=== PATIENT | female | born 1965 | race Caucasian/White ===

== ENCOUNTER 2017-11-02 13:52 | Inpatient (IN) | payer MEDICAID ==
[2017-11-02] MEDS ORDERED: Sodium Chloride 0.9% 1,000 ML IV ONE (14:48)
--- NOTE | 2017-11-02 15:05 | ED Physician Chart ---
ED Chief Complaint/HPI - Patient Information Date Seen:: 11/02/17 Time Seen:: 14:00 Chief Complaint:: ALOC History of Present Illness:: onset x 3 hours of ALOC, AMS, and decreased activity; Hx of ETOH abuse; no report of trauma, H/As, S/T, neck pain, cough, C/P, SOB, Abd. Pain, A/N/V/D/C, fever, chills, or urinary s/s; pt's last tetanus shot: > 5 years Allergies:: Allergies Allergy/AdvReac Type Severity Reaction Status Date / Time No Known Allergies Allergy Verified 11/02/17 14:04 Vitals:: Vital Signs - 8 hr 11/02/17 14:05 Temp 98.3 F HR 89 RR 21 BP 97/45 O2 Sat % 94 Historian:: Patient, EMS Review:: Nurse's Note Reviewed, Old Chart Reviewed, EMS run form Reviewed <Juan Antonio Xavier - Last Filed: 11/02/17 19:10> - Patient Information Allergies:: Allergies Allergy/AdvReac Type Severity Reaction Status Date / Time No Known Allergies Allergy Verified 11/02/17 14:04 Vitals:: Vital Signs - 8 hr 11/02/17 11/02/17 11/02/17 14:00 14:05 16:30 Temp 97 F 98.3 F 97.2 F HR 85 89 91 RR 12 21 14 BP 97/45 97/45 103/59 O2 Sat % 96 94 96 11/02/17 11/02/17 18:00 19:55 Temp 97.9 F 98.6 F HR 98 102 RR 14 18 BP 104/53 104/53 O2 Sat % 94 93 <Ashwini Bolanos - Last Filed: 11/02/17 21:03> ED Review of Systems - Review of Systems General/Constitutional: No fever, No chills, No weight loss, No weakness, No diaphoresis, No edema, No loss of appetite Skin: No skin lesions, No rash, No bruising Head: No headache, No light-headedness Eyes: No loss of vision, No pain, No diplopia ENT: No earache, No nasal drainage, No sore throat, No tinnitus Neck: No neck pain, No swelling, No thyromegaly, No stiffness, No mass noted Cardio Vascular: No chest pain, No palpitations, No PND, No orthopnea, No edema Pulmonary: No SOB, No cough, No sputum, No wheezing GI: No nausea, No vomiting, No diarrhea, No pain, No melena, No hematochezia, No constipation, No hematemesis G/U: No dysuria, No frequency, No hematuria, No nacturia Sample Grinder: No vaginal discharge, No abnormal vaginal bleed, No contraction Musculoskeletal: No bone or joint pain, No back pain, No muscle pain Endocrine: No polyuria, No polydipsia Psychiatric: No prior psych history, No depression, No anxiety, No suicidal ideation, No homicidal ideation, No auditory hallucination, No visual hallucination Hematopoietic: No bruising, No lymphadenopathy Allergic/Immuno: No urticaria, No angioedema Neurological: No syncope, No focal symptoms, No weakness, No paresthesia, No headache, No seizure, No dizziness, No confusion, No vertigo <SmitaclaresaraJuan Antonio - Last Filed: 11/02/17 19:10> ED Past Medical History - Past Medical History Obtainable: Yes Past Medical History: HTN, Dyslipidemia, Seizures, Other (Cirrhosis) Family History: HTN Social History: Smoker, Alcohol, No Drug Use, Single Surgical History: None Psychiatricy History: None Medication: Reviewed <SmitarasheedaJuan Antonio Last Filed: 11/02/17 19:10> Family Medical History - Family Member Mother History Unknown: Yes <DucJuan Antonio Last Filed: 11/02/17 19:10> ED Physical Exam - Physical Examination General/Constitutional: Awake, Well-developed, well-nourished, Alert, No distress, GCS 15, Non-toxic appearing, Ambulatory Head: Atraumatic Other Head comments:: + Middle Frontal Scalp Abrasions; no cellulitis; no FBs; good motor and sensory functions; good NV functions Eyes: Lids, conjuctiva normal, PERRL, EOMI Skin: Nl inspection, No rash, No skin lesions, No ecchymosis, Well hydrated, No lymphadenopathy ENMT: External ears, nose nl, TM canals nl, Nasal exam nl, Lips, teeth, gums nl , Oropharynx nl, Tonsils nl Neck: Nontender, Full ROM w/o pain, No JVD, No nuchal rigidity, No bruit, No mass, No stridor Respiratory: Nl effort/Exclusion, Clear to Auscultation, No Wheeze/Rhonchi/Rales Cardio Vascular: RRR, No murmur, gallop, rubs, NL S1 S2, Carotid/Femoral/Distal pulses equal bilaterally GI: No tenderness/rebounding/guarding, No organomegaly, No hernia, Normal BS's, Nondistended, No mass/bruits, No McBurney tenderness, Rectum exam nl : No CVA tenderness Extremities: No tenderness or effusion, Full ROM, normal strength in all extremities, No edema, Normal digits & nails Neuro/Psych: Alert/oriented, DTR's symmetric, Normal sensory exam, Normal motor strength, Judgement/insight normal, Mood normal, Normal gait, No focal deficits Misc: Normal back, No paraspinal tenderness <Juan Antonio Xavier - Last Filed: 11/02/17 19:10> - Physical Examination Eyes: PERRL, EOMI Other Eyes comments:: Eyes are icteric. Other ENMT comments:: dried blood on left side of mouth. No blood in oropharynx. No acute nasal swelling. Respiratory: Nl effort/Exclusion, Clear to Auscultation, No Wheeze/Rhonchi/Rales Cardio Vascular: RRR, No murmur, gallop, rubs, NL S1 S2 Other Extremities comments:: patient has bilateral foot edema with some erythema. The swelling is more present on the L foot than on the R foot. There is no evidence of a deep venous thrombosis. 20:56 p.m. <Ashwini Bolanos - Last Filed: 11/02/17 21:03> ED Labs/Radiology/EKG Results - Lab Results Comments:: ETOH: 124; + Anemia; Elevated LFTs; K+: 3.3 - EKG Interpretations EKG Time:: 14:53 Rate & Rhythm: 89; NSR Comments:: IVCD; non-specific st-t changes <Juan Antonio Xavier - Last Filed: 11/02/17 19:10> - Lab Results Results: Laboratory Tests 11/02/17 11/02/17 11/02/17 14:30 14:30 14:30 WBC 7.0 RBC 2.81 L Hgb 9.8 L Hct 28.7 L MCV 102.1 H MCH 35.0 H MCHC Differential 34.3 RDW 13.4 Plt Count 120 L MPV 7.2 Add Manual Diff YES Band Neutrophils % 1 Neutrophils (Manual) 73 Lymphocytes 18 L Monocytes 3 Eosinophils 2 Basophils 3 Platelet Estimate SLIGHT DECREASED Platelet Morphology NORMAL RBC Morph Micro Appear NORMAL PT 14.5 H INR 1.37 Sodium 135 L Potassium 3.3 L Chloride 98 Carbon Dioxide 26.5 Anion Gap 13.8 BUN 13 Creatinine 0.9 Est GFR ( Amer) > 60.0 Est GFR (Non-Af Amer) > 60.0 BUN/Creatinine Ratio 14.4 Glucose 93 Calcium 9.7 Total Bilirubin 3.2 H AST 66 H ALT 17 Alkaline Phosphatase 163 H Creatine Kinase 546 H CK-MB (CK-2) 12.3 H Troponin I B-Natriuretic Peptide Total Protein 7.4 Albumin 3.6 L Globulin 3.8 Albumin/Globulin Ratio 1.0 Triglycerides 212 H Cholesterol 278 H LDL Cholesterol Direct 207 H HDL Cholesterol 22 L Amylase 28 L Lipase 5 L Serum , Qual Urine Source Urine Color Urine Clarity Urine pH Ur Specific [place] Urine Protein Urine Glucose (UA) Urine Ketones Urine Blood Urine Nitrate Urine Bilirubin Urine Urobilinogen Ur Leukocyte Esterase Urine RBC Urine WBC Ur Epithelial Cells Urine Bacteria Urine Mucus Urine Test Urine Opiates Screen Urine Methadone Screen Ur Barbiturates Screen Ur Tricyclics Screen Ur Phencyclidine Scrn Amphetamines Screen U Methamphetamines Scrn U Benzodiazepines Scrn U Cocaine Metab Screen U Cannabinoids Screen Ethyl Alcohol 124 H 11/02/17 11/02/17 11/02/17 14:30 14:30 14:30 WBC RBC Hgb Hct MCV MCH MCHC Differential RDW Plt Count MPV Add Manual Diff Band Neutrophils % Neutrophils (Manual) Lymphocytes Monocytes Eosinophils Basophils Platelet Estimate Platelet Morphology RBC Morph Micro Appear PT INR Sodium Potassium Chloride Carbon Dioxide Anion Gap BUN Creatinine Est GFR ( Amer) Est GFR (Non-Af Amer) BUN/Creatinine Ratio Glucose Calcium Total Bilirubin AST ALT Alkaline Phosphatase Creatine Kinase CK-MB (CK-2) Troponin I 0.04 B-Natriuretic Peptide 219.0 H Total Protein Albumin Globulin Albumin/Globulin Ratio Triglycerides Cholesterol LDL Cholesterol Direct HDL Cholesterol Amylase Lipase Serum , Qual NEGATIVE Urine Source Urine Color Urine Clarity Urine pH Ur Specific [place] Urine Protein Urine Glucose (UA) Urine Ketones Urine Blood Urine Nitrate Urine Bilirubin Urine Urobilinogen Ur Leukocyte Esterase Urine RBC Urine WBC Ur Epithelial Cells Urine Bacteria Urine Mucus Urine Test Urine Opiates Screen Urine Methadone Screen Ur Barbiturates Screen Ur Tricyclics Screen Ur Phencyclidine Scrn Amphetamines Screen U Methamphetamines Scrn U Benzodiazepines Scrn U Cocaine Metab Screen U Cannabinoids Screen Ethyl Alcohol 11/02/17 11/02/17 11/02/17 16:53 16:53 16:53 WBC RBC Hgb Hct MCV MCH MCHC Differential RDW Plt Count MPV Add Manual Diff Band Neutrophils % Neutrophils (Manual) Lymphocytes Monocytes Eosinophils Basophils Platelet Estimate Platelet Morphology RBC Morph Micro Appear PT INR Sodium Potassium Chloride Carbon Dioxide Anion Gap BUN Creatinine Est GFR ( Amer) Est GFR (Non-Af Amer) BUN/Creatinine Ratio Glucose Calcium Total Bilirubin AST ALT Alkaline Phosphatase Creatine Kinase CK-MB (CK-2) Troponin I B-Natriuretic Peptide Total Protein Albumin Globulin Albumin/Globulin Ratio Triglycerides Cholesterol LDL Cholesterol Direct HDL Cholesterol Amylase Lipase Serum , Qual Urine Source CLEAN C Urine Color YELLOW Urine Clarity CLEAR Urine pH 6.0 Ur Specific [place] <= 1.005 Urine Protein NEGATIVE Urine Glucose (UA) NEGATIVE Urine Ketones NEGATIVE Urine Blood NEGATIVE Urine Nitrate NEGATIVE Urine Bilirubin NEGATIVE Urine Urobilinogen 0.2 Ur Leukocyte Esterase MODERATE H Urine RBC NONE SEEN Urine WBC 2-5 Ur Epithelial Cells FEW Urine Bacteria NONE SEEN Urine Mucus FEW Urine Test NEGATIVE Urine Opiates Screen POSITIVE H Urine Methadone Screen NEGATIVE Ur Barbiturates Screen NEGATIVE Ur Tricyclics Screen NEGATIVE Ur Phencyclidine Scrn NEGATIVE Amphetamines Screen NEGATIVE U Methamphetamines Scrn NEGATIVE U Benzodiazepines Scrn POSITIVE H U Cocaine Metab Screen NEGATIVE U Cannabinoids Screen NEGATIVE Ethyl Alcohol <Ashwini Bolanos - Last Filed: 11/02/17 21:03> ED Assessment - Assessment General Assessment: I took over patient care at 7:[address] Xavier needs to be documented before I took over this patient's care. 20:59 p.m. Assessment/Comments:: spoke to Dr. Churchill at 20:53 p.m. about admitting this patient with alcohol intoxication, UTI and alcohol withdrawal with tremors and positive for opiates and benzos on her urine drug screen. He will admit the patient. Suzie Ayala <Ashwini Bolanos - Last Filed: 11/02/17 21:03> ED Septic Shock - . Is Septic Shock (SBP<90, OR Lactate>4 mmol\L) present?: No - <6hrs of presentation: Vital Signs: Vital Signs - 8 hr 11/02/17 14:05 Temp 98.3 F HR 89 RR 21 BP 97/45 O2 Sat % 94 <Juan Antonio Xavier - Last Filed: 11/02/17 19:10> - . Is Septic Shock (SBP<90, OR Lactate>4 mmol\L) present?: No - <6hrs of presentation: Vital Signs: Vital Signs - 8 hr 11/02/17 11/02/17 11/02/17 14:00 14:05 16:30 Temp 97 F 98.3 F 97.2 F HR 85 89 91 RR 12 21 14 BP 97/45 97/45 103/59 O2 Sat % 96 94 96 11/02/17 11/02/17 18:00 19:55 Temp 97.9 F 98.6 F HR 98 102 RR 14 18 BP 104/53 104/53 O2 Sat % 94 93 <Ashwini Bolanos - Last Filed: 11/02/17 21:03> ED Reassessment (Disposition) - Reassessment Reassessment Condition:: Improved - Diagnosis Diagnosis:: ALOC; AMS; ETOH Intoxication; Alcohol Abuse; Alcohol Intoxication; Hypokalemia; Anemia; Elevated LFTs; Cirrhosis <Juan Antonio Xavier - Last Filed: 11/02/17 19:10>
[2017-11-02 15:25] LABS: INR 1.37 (0.5-1.4); PROTHROMBIN TIME (TEST) 14.5 SECONDS (9.5-11.5)
[2017-11-02 15:32] LABS: ALBUMIN 3.6 gm/dL (3.7-5.3); ALKALINE PHOSPHATASE 163 U/L (34-104); AMYLASE SERUM 28 U/L (29-103); ANION GAP 13.8 (7.0-16.0); BILIRUBIN,TOTAL 3.2 mg/dL (0.3-1.0); BUN - UREA NITROGEN 13 mg/dL (7-25); CALCIUM SERUM 9.7 mg/dL (8.6-10.3); CARBON DIOXIDE 26.5 mEq/L (21.0-31.0); CHLORIDE 98 mEq/L (98-107); CHOLESTEROL 278 mg/dL (<200); CREATININE - SERUM 0.9 mg/dL (0.6-1.2); CREATININE KINASE 546 U/L (30-223); GFR AFRICAN-AMERICAN > 60.0 ml/min (>90); GFR NON AFRICAN-AMERICAN > 60.0 ml/min; GLUCOSE 93 mg/dL (70-105); HDL -HIGH DENSITY LIPOPROTEIN 22 mg/dL (23-92); LIPASE 5 U/L (11-82); POTASSIUM SERUM 3.3 mEq/L (3.5-5.1); SGOT 66 U/L (13-39); SGPT/ALT 17 U/L (7-52); SODIUM SERUM 135 mEq/L (136-145); TOTAL PROTEIN,SERUM 7.4 gm/dL (6.0-8.3); TRIGLYCERIDES 212 mg/dL (<150)
[2017-11-02 15:36] LABS: HEMATOCRIT 28.7 % (41.0-60); HEMOGLOBIN 9.8 gm/dL (12-16); MEAN CELL VOLUME 102.1 fl (81-100); MEAN CORPUSCULAR HGB CONC 34.3 pg (28.0-36.0); MEAN PLATELET VOLUME 7.2 fl; PLATELET COUNT 120 Th/cmm (150-400); RED BLOOD COUNT 2.81 Mil/cmm (3.80-5.10); RED CELL DISTRIBUTION WIDTH 13.4 % (11.5-20.0)
[2017-11-02 16:10] LABS: BAND NEUTROPHILE 1 % (0-10); BASOPHIL 3 % (0-3); EOSINOPHIL 2 % (0-5); LYMPHOCYTE 18 % (20-50); MONOCYTE 3 % (2-10); NEUTROPHILS 73 % (40-80)
[2017-11-02 16:11] LABS: PLATELET ESTIMATE SLIGHT DECREASED (NORMAL); PLATELET MORPHOLOGY NORMAL (NORMAL)
[2017-11-02] MEDS ORDERED: Potassium Chloride 20 mEq ER Tab PO ONE ×2 (16:30→17:04)
[2017-11-02] MEDS ORDERED: Multivitamin Inj 10 ML, Thiamine HCL 100 MG, Magnesium Sulfate 2 GM, Folic Acid 1 MG in... IV ONE (16:30)
[2017-11-02 17:12] LABS: URINE MICROSCOPIC INDICATED? YES; URINE SOURCE CLEAN C
[2017-11-02 17:18] LABS: URINE BILIRUBIN NEGATIVE (NEGATIVE); URINE BLOOD NEGATIVE (NEGATIVE); URINE GLUCOSE (UA) NEGATIVE (NEGATIVE); URINE KETONE NEGATIVE (NEGATIVE); URINE LEUKOCYTE ESTERASE MODERATE (NEGATIVE); URINE NITRATE NEGATIVE (NEGATIVE); URINE PROTEIN NEGATIVE (NEGATIVE); URINE UROBILINOGEN 0.2 E.U./dL (0.2 - 1.0)
[2017-11-02 17:34] LABS: URINE CLARITY CLEAR (CLEAR); URINE COLOR YELLOW
[2017-11-02 17:36] LABS: URINE EPITHELIAL CELLS FEW /lpf (FEW); URINE RBC NONE SEEN /hpf (0-5)
[2017-11-02 17:37] LABS: URINE BACTERIA NONE SEEN /hpf (NONE SEEN)
[2017-11-02 17:38] LABS: AMPHETAMINE URINE NEGATIVE (NEGATIVE); BARBITURATES URINE NEGATIVE (NEGATIVE); CANNABINOID THC NEGATIVE (NEGATIVE); COCAINE METABOLITE QUAL URINE NEGATIVE (NEGATIVE); METHADONE URINE NEGATIVE (NEGATIVE); METHAMPHETAMINES QUAL URINE NEGATIVE (NEGATIVE); OPIATES (MORPHINE) QUAL. URINE POSITIVE (NEGATIVE); PHENCYCLIDINE (PCP) URINE NEGATIVE (NEGATIVE); TRICYCLICS (TCA) QUAL. URINE NEGATIVE (NEGATIVE)
[2017-11-02 17:39] LABS: BENZODIAZEPINES QUAL URINE POSITIVE (NEGATIVE)
[2017-11-03] MEDS ORDERED: cefTRIAXone 1 GM in Sodium Chloride 0.9% 50 ML IV SCH (04:43)
[2017-11-03] MEDS: D5-0.45NS 1,000 ML IV SCH ×2 (05:07→22:04)
--- NOTE | 2017-11-03 09:20 | GI Progress Note ---
Subjective - Review of Systems Service Date: 11/03/17 Subjective: PT HAS ANOTHER EMR RECORD WITH BIRTHDAY 61. Pt well known to our service. She has long history of alcoholism and known history of hepatocellular carcinoma. She is now readmitted with intoxication and vomiting. Objective - Results Result Diagrams: 11/02/17 14:30 11/02/17 14:30 Recent Labs: Laboratory Last Values WBC 7.0 Th/cmm (4.8-10.8) 11/02/17 14:30 RBC 2.81 Mil/cmm (3.80-5.10) L 11/02/17 14:30 Hgb 9.8 gm/dL (12-16) L 11/02/17 14:30 Hct 28.7 % (41.0-60) L 11/02/17 14:30 MCV 102.1 fl (81-100) H 11/02/17 14:30 MCH 35.0 pg (27.0-31.0) H 11/02/17 14:30 MCHC Differential 34.3 pg (28.0-36.0) 11/02/17 14:30 RDW 13.4 % (11.5-20.0) 11/02/17 14:30 Plt Count 120 Th/cmm (150-400) L 11/02/17 14:30 MPV 7.2 fl 11/02/17 14:30 Add Manual Diff YES 11/02/17 14:30 Band Neutrophils % 1 % (0-10) 11/02/17 14:30 Neutrophils (Manual) 73 % (40-80) 11/02/17 14:30 Lymphocytes 18 % (20-50) L 11/02/17 14:30 Monocytes 3 % (2-10) 11/02/17 14:30 Eosinophils 2 % (0-5) 11/02/17 14:30 Basophils 3 % (0-3) 11/02/17 14:30 Platelet Estimate SLIGHT DECREASED (NORMAL) 11/02/17 14:30 Platelet Morphology NORMAL (NORMAL) 11/02/17 14:30 RBC Morph Micro Appear NORMAL (NORMAL) 11/02/17 14:30 PT 14.5 SECONDS (9.5-11.5) H 11/02/17 14:30 INR 1.37 (0.5-1.4) 11/02/17 14:30 Sodium 135 mEq/L (136-145) L 11/02/17 14:30 Potassium 3.3 mEq/L (3.5-5.1) L 11/02/17 14:30 Chloride 98 mEq/L (98-107) 11/02/17 14:30 Carbon Dioxide 26.5 mEq/L (21.0-31.0) 11/02/17 14:30 Anion Gap 13.8 (7.0-16.0) 11/02/17 14:30 BUN 13 mg/dL (7-25) 11/02/17 14:30 Creatinine 0.9 mg/dL (0.6-1.2) 11/02/17 14:30 Est GFR ( Amer) > 60.0 ml/min (>90) 11/02/17 14:30 Est GFR (Non-Af Amer) > 60.0 ml/min 11/02/17 14:30 BUN/Creatinine Ratio 14.4 11/02/17 14:30 Glucose 93 mg/dL (70-105) 11/02/17 14:30 Calcium 9.7 mg/dL (8.6-10.3) 11/02/17 14:30 Total Bilirubin 3.2 mg/dL (0.3-1.0) H 11/02/17 14:30 AST 66 U/L (13-39) H 11/02/17 14:30 ALT 17 U/L (7-52) 11/02/17 14:30 Alkaline Phosphatase 163 U/L (34-104) H 11/02/17 14:30 Creatine Kinase 546 U/L (30-223) H 11/02/17 14:30 CK-MB (CK-2) 12.3 ng/mL (0.6-6.3) H 11/02/17 14:30 Troponin I 0.04 ng/mL (0.01-0.05) 11/02/17 14:30 B-Natriuretic Peptide 219.0 pg/mL (5.0-100.0) H 11/02/17 14:30 Total Protein 7.4 gm/dL (6.0-8.3) 11/02/17 14:30 Albumin 3.6 gm/dL (3.7-5.3) L 11/02/17 14:30 Globulin 3.8 gm/dL 11/02/17 14:30 Albumin/Globulin Ratio 1.0 (1.0-1.8) 11/02/17 14:30 Triglycerides 212 mg/dL (<150) H 11/02/17 14:30 Cholesterol 278 mg/dL (<200) H 11/02/17 14:30 LDL Cholesterol Direct 207 mg/dL (75-193) H 11/02/17 14:30 HDL Cholesterol 22 mg/dL (23-92) L 11/02/17 14:30 Amylase 28 U/L (29-103) L 11/02/17 14:30 Lipase 5 U/L (11-82) L 11/02/17 14:30 Serum , Qual NEGATIVE (NEGATIVE) 11/02/17 14:30 Urine Source CLEAN C 11/02/17 16:53 Urine Color YELLOW 11/02/17 16:53 Urine Clarity CLEAR (CLEAR) 11/02/17 16:53 Urine pH 6.0 (4.6 - 8.0) 11/02/17 16:53 Ur Specific [place] <= 1.005 (1.005-1.030) 11/02/17 16:53 Urine Protein NEGATIVE mg/dL (NEGATIVE) 11/02/17 16:53 Urine Glucose (UA) NEGATIVE mg/dL (NEGATIVE) 11/02/17 16:53 Urine Ketones NEGATIVE mg/dL (NEGATIVE) 11/02/17 16:53 Urine Blood NEGATIVE (NEGATIVE) 11/02/17 16:53 Urine Nitrate NEGATIVE (NEGATIVE) 11/02/17 16:53 Urine Bilirubin NEGATIVE (NEGATIVE) 11/02/17 16:53 Urine Urobilinogen 0.2 E.U./dL (0.2 - 1.0) 11/02/17 16:53 Ur Leukocyte Esterase MODERATE (NEGATIVE) H 11/02/17 16:53 Urine RBC NONE SEEN /hpf (0-5) 11/02/17 16:53 Urine WBC 2-5 /hpf (0-5) 11/02/17 16:53 Ur Epithelial Cells FEW /lpf (FEW) 11/02/17 16:53 Urine Bacteria NONE SEEN /hpf (NONE SEEN) 11/02/17 16:53 Urine Mucus FEW /lpf (FEW) 11/02/17 16:53 Urine Test NEGATIVE 11/02/17 16:53 Urine Opiates Screen POSITIVE (NEGATIVE) H 11/02/17 16:53 Urine Methadone Screen NEGATIVE (NEGATIVE) 11/02/17 16:53 Ur Barbiturates Screen NEGATIVE (NEGATIVE) 11/02/17 16:53 Ur Tricyclics Screen NEGATIVE (NEGATIVE) 11/02/17 16:53 Ur Phencyclidine Scrn NEGATIVE (NEGATIVE) 11/02/17 16:53 Amphetamines Screen NEGATIVE (NEGATIVE) 11/02/17 16:53 U Methamphetamines Scrn NEGATIVE (NEGATIVE) 11/02/17 16:53 U Benzodiazepines Scrn POSITIVE (NEGATIVE) H 11/02/17 16:53 U Cocaine Metab Screen NEGATIVE (NEGATIVE) 11/02/17 16:53 U Cannabinoids Screen NEGATIVE (NEGATIVE) 11/02/17 16:53 Ethyl Alcohol 124 mg/dL (0-10) H 11/02/17 14:30 - Physical Exam Vitals and I&O: Vital Signs Temp 98.5 F 11/03/17 07:41 Pulse 81 11/03/17 07:41 Resp 19 11/03/17 07:41 BP 113/65 11/03/17 07:41 Pulse Ox 99 11/03/17 06:16 Intake & Output 11/02/17 11/03/17 11/03/17 18:59 06:59 18:59 Output Total 400 Balance -400 Weight (lbs) 53.524 kg 57.606 kg Output: Urine 400 Other: # Voids 3 Weight Source Estimated Bedscale Active Medications: Current Medications Chlordiazepoxide (Librium) 50 mg PO Q6HR PRN; Protocol PRN Reason: Agitation Stop: 01/02/18 04:42 Dextrose/Sodium Chloride (D5-0.45ns) 1,000 mls @ 80 mls/hr IV .[id number] SHILOH Stop: 01/01/18 22:59 Last Admin: 11/03/17 05:07 Dose: 80 mls/hr Ceftriaxone Sodium 1 gm/ (Dextrose) 50 mls @ 100 mls/hr IV Q24HR SHILOH Stop: 01/02/18 04:42 Ketorolac Tromethamine (Toradol) 15 mg IVP Q6HR PRN PRN Reason: Pain (Mild) LEVEL 1-3 Stop: 01/02/18 04:42 Last Admin: 11/03/17 05:17 Dose: 15 mg Lorazepam (Ativan) 1 mg IVP Q4HR PRN; Protocol PRN Reason: Alcohol Withdrawal Stop: 01/01/18 20:24 Last Admin: 11/02/17 20:58 Dose: 1 mg Ondansetron HCl (Zofran) 4 mg IV Q6HR PRN PRN Reason: Nausea Stop: 01/02/18 04:42 Pantoprazole Sodium (Protonix) 40 mg IVP DAILY SHILOH Stop: 01/02/18 08:59 Last Admin: 11/03/17 08:34 Dose: 40 mg General: Alert, Oriented x3 Cardiovascular: Regular rate Abdomen: Bowel sounds, Soft, Hepatomegaly, no Tender, no Rebound, no Guarding Extremities: no Clubbing Psych/Mental Status: Mental status NL Assessment/Plan - Problem List Patient Problems: All Active Problems ALCOHOL INGESTION, INABILITY TO AMBULATE (Acute) - Assessment Assessment: # Cirrhosis secondary to alcoholism # Alcoholsim # Hepatocellular carcinoma Pt with HCC, followed by Dr López. She has had TACE previously, but this had been on hold as the pt has begun to drink again over the past 1-2 months. She was admitted ion 09/2017 for similar issues. She has alcoholic hepatitis, and is still drinking. She has had EGD within the last year. Plan: - needs to stop EtOH in order to have more treatments for HCC. Follow with Dr López (her director home health) - watch for EtOH withdrawal, she has had seizures before from this - trend LFTs and CBC - US performed 1 mo ago, does not need repeating now - start diet, and advance as tolerated. Ultimately needs low salt - no need to EGD now unless there is over bleeding
--- NOTE | 2017-11-03 09:22 | Diagnostic Imaging Report ---
Exam: CT examination cervical spine. HISTORY: Trauma. Total DLP equals 386 CTDI equals 17. 2 Findings: Multiple contiguous thin section of the cervical spine were obtained in axial plane with coronal and sagittal reconstruction technique. No prior studies available comparison. The study demonstrates reversal of the cervical lordosis. The vertebral bodies of normal height with narrowing of the intravertebral disc spaces at C3 C4 C5 intervertebral disc spaces. There is evidence of for a moderate C4-C5 broad-based central disc protrusion. Mild spinal stenosis appreciated this level MRI examination might be helpful. No prevertebral soft tissue swelling is noted. Vascular calcifications identified. IMPRESSION: Degenerative changes, multilevel cervical disc disease and facet joint arthropathy. C4-C5 prominent central base disc protrusion resulting in moderate spinal stenosis. MRI examination might be helpful.
--- NOTE | 2017-11-03 09:24 | Diagnostic Imaging Report ---
Exam: CT examination of brain. HISTORY: Trauma. Total DLP equals 832 CTDI equals 38.6 Multiple contiguous thin section of brain were obtained from base of skull to the vertex without the administration of contrast material. No prior studies available for comparison. The study demonstrates no evidence of hemorrhage or midline shift. There is no evidence for edema. The brain parenchyma is intact. Bony calvarium is normal. Old nasal fracture appreciated. IMPRESSION: Essentially unremarkable examination of brain. .
[2017-11-03 12:44] VITALS: BP 118/69
[2017-11-03] MEDS: metroNIDAZOLE 500mg/NS 100mL 500 MG/100 ML BAG IV SCH (21:38)
--- NOTE | 2017-11-03 22:13 | History & Physical ---
ADMIT DATE: 11/03/2017 CHIEF COMPLAINT: Altered mental status, unable to ambulate. HISTORY OF PRESENT ILLNESS: This is a 52-year-old female who was evaluated in the Emergency Room for altered mental status, unable to ambulate, diagnosed with alcohol intoxication, UTI and subsequently admitted to the hospital for treatment. The patient has underlying history of chronic liver cirrhosis, alcohol related, also hepatocellular carcinoma per GI report, and alcoholic hepatitis. Per GI report, the patient is being followed by Dr. López in [place]. Treatment was stopped because the patient restarted drinking. The patient stated that she was recently hospitalized at [facility], diagnosed with UTI and C. diff colitis, was discharged home with antibiotic, but she is in the process of moving, so she was unable to fill the prescription. The patient reported about 3-4 loose stools since morning with some foul odor. The patient denies any vomiting. No abdominal pain. No nausea, no fever, no chills. PAST MEDICAL HISTORY: Alcoholic liver cirrhosis, alcoholic hepatitis, hepatocellular carcinoma. PAST SURGICAL HISTORY: No significant past surgical history reported. SOCIAL HISTORY: Positive for alcohol use. CURRENT MEDICATIONS: Per medical reconciliation and reviewed. ALLERGIES: No known drug allergies. REVIEW OF SYSTEMS: As per HPI. A 12-point system review appears negative. PHYSICAL EXAMINATION: VITAL SIGNS: Temperature 98.2, pulse 85, respirations 18, blood pressure 128/71, 98% through nasal cannula. HEART: S1, S2 normal. LUNGS: Clear to auscultation. ABDOMEN: Soft, nontender, nondistended. EXTREMITIES: Mild edema noted. LABORATORY DATA: Available lab data has been reviewed. ASSESSMENT: 1. Alcohol intoxication. 2. Diarrhea, rule out Clostridium difficile. 3. Urinary tract infection. 4. Alcoholic hepatitis. 5. Hepatocellular carcinoma. 6. Hypokalemia. 7. Anemia of chronic disease. 8. Hyperlipidemia. PLAN: The patient was admitted to tele unit, was on clear liquids, seen by GI. Diet was advanced to full liquid. IV fluid has been given. IV Protonix has been given. Empiric Flagyl started. IV Rocephin started. ID consulted for further evaluation and recommendations. I will encourage for alcohol avoidance. We will check the stool sample for C. diff confirmations. Librium for agitation and anxiety, Tramadol as needed for pain, Zofran, Protonix is on board. The patient's condition and plan of care discussed with nursing staff. Appreciate GI input. We will follow up on the GI recommendations. JOB# [id number]
[2017-11-04] MEDS: metroNIDAZOLE 500mg/NS 100mL 500 MG/100 ML BAG IV SCH (05:01)
[2017-11-04 05:58] LABS: HEMATOCRIT 25.7 % (41.0-60); HEMOGLOBIN 8.5 gm/dL (12-16); MEAN CELL VOLUME 101.3 fl (81-100); MEAN CORPUSCULAR HEMOGLOBIN 33.4 pg (27.0-31.0); MEAN PLATELET VOLUME 7.2 fl; PLATELET COUNT 102 Th/cmm (150-400); RED BLOOD COUNT 2.54 Mil/cmm (3.80-5.10); RED CELL DISTRIBUTION WIDTH 13.5 % (11.5-20.0); WHITE BLOOD COUNT 4.1 Th/cmm (4.8-10.8)
[2017-11-04 06:15] LABS: ALB/GLOB RATIO 0.7 (1.0-1.8); ALBUMIN 2.6 gm/dL (3.7-5.3); ALKALINE PHOSPHATASE 123 U/L (34-104); ANION GAP 9.5 (7.0-16.0); BILIRUBIN,TOTAL 2.8 mg/dL (0.3-1.0); BUN - UREA NITROGEN 6 mg/dL (7-25); CALCIUM SERUM 8.5 mg/dL (8.6-10.3); CARBON DIOXIDE 28.8 mEq/L (21.0-31.0); CHLORIDE 102 mEq/L (98-107); CREATININE - SERUM 0.6 mg/dL (0.6-1.2); GFR AFRICAN-AMERICAN > 60.0 ml/min (>90); GFR NON AFRICAN-AMERICAN > 60.0 ml/min; GLUCOSE 100 mg/dL (70-105); POTASSIUM SERUM 3.3 mEq/L (3.5-5.1); SGOT 50 U/L (13-39); SGPT/ALT 12 U/L (7-52); SODIUM SERUM 137 mEq/L (136-145); TOTAL PROTEIN,SERUM 6.1 gm/dL (6.0-8.3)
[2017-11-04 06:44] LABS: BAND NEUTROPHILE 0 % (0-10); BASOPHIL 0 % (0-3); EOSINOPHIL 0 % (0-5); LYMPHOCYTE 22 % (20-50); MONOCYTE 4 % (2-10); NEUTROPHILS 74 % (40-80); PLATELET ESTIMATE ADEQUATE (NORMAL); PLATELET MORPHOLOGY NORMAL (NORMAL)
--- NOTE | 2017-11-04 08:39 | GI Progress Note ---
Subjective - Review of Systems Service Date: 11/04/17 Subjective: Tolerating full liquids Objective - Results Result Diagrams: 11/04/17 04:32 11/04/17 04:32 Recent Labs: Laboratory Last Values WBC 4.1 Th/cmm (4.8-10.8) L 11/04/17 04:32 RBC 2.54 Mil/cmm (3.80-5.10) L 11/04/17 04:32 Hgb 8.5 gm/dL (12-16) L 11/04/17 04:32 Hct 25.7 % (41.0-60) L 11/04/17 04:32 MCV 101.3 fl (81-100) H 11/04/17 04:32 MCH 33.4 pg (27.0-31.0) H 11/04/17 04:32 MCHC Differential 33.0 pg (28.0-36.0) 11/04/17 04:32 RDW 13.5 % (11.5-20.0) 11/04/17 04:32 Plt Count 102 Th/cmm (150-400) L 11/04/17 04:32 MPV 7.2 fl 11/04/17 04:32 Add Manual Diff YES 11/04/17 04:32 Band Neutrophils % 0 % (0-10) 11/04/17 04:32 Neutrophils (Manual) 74 % (40-80) 11/04/17 04:32 Lymphocytes 22 % (20-50) 11/04/17 04:32 Monocytes 4 % (2-10) 11/04/17 04:32 Eosinophils 0 % (0-5) 11/04/17 04:32 Basophils 0 % (0-3) 11/04/17 04:32 Platelet Estimate ADEQUATE (NORMAL) 11/04/17 04:32 Platelet Morphology NORMAL (NORMAL) 11/04/17 04:32 RBC Morph Micro Appear NORMAL (NORMAL) 11/04/17 04:32 PT 14.5 SECONDS (9.5-11.5) H 11/02/17 14:30 INR 1.37 (0.5-1.4) 11/02/17 14:30 Sodium 137 mEq/L (136-145) 11/04/17 04:32 Potassium 3.3 mEq/L (3.5-5.1) L 11/04/17 04:32 Chloride 102 mEq/L (98-107) 11/04/17 04:32 Carbon Dioxide 28.8 mEq/L (21.0-31.0) 11/04/17 04:32 Anion Gap 9.5 (7.0-16.0) 11/04/17 04:32 BUN 6 mg/dL (7-25) L 11/04/17 04:32 Creatinine 0.6 mg/dL (0.6-1.2) 11/04/17 04:32 Est GFR ( Amer) > 60.0 ml/min (>90) 11/04/17 04:32 Est GFR (Non-Af Amer) > 60.0 ml/min 11/04/17 04:32 BUN/Creatinine Ratio 10.0 11/04/17 04:32 Glucose 100 mg/dL (70-105) 11/04/17 04:32 Calcium 8.5 mg/dL (8.6-10.3) L 11/04/17 04:32 Total Bilirubin 2.8 mg/dL (0.3-1.0) H 11/04/17 04:32 AST 50 U/L (13-39) H 11/04/17 04:32 ALT 12 U/L (7-52) 11/04/17 04:32 Alkaline Phosphatase 123 U/L (34-104) H 11/04/17 04:32 Creatine Kinase 546 U/L (30-223) H 11/02/17 14:30 CK-MB (CK-2) 12.3 ng/mL (0.6-6.3) H 11/02/17 14:30 Troponin I 0.04 ng/mL (0.01-0.05) 11/02/17 14:30 B-Natriuretic Peptide 219.0 pg/mL (5.0-100.0) H 11/02/17 14:30 Total Protein 6.1 gm/dL (6.0-8.3) 11/04/17 04:32 Albumin 2.6 gm/dL (3.7-5.3) L 11/04/17 04:32 Globulin 3.5 gm/dL 11/04/17 04:32 Albumin/Globulin Ratio 0.7 (1.0-1.8) L 07/22/18 04:32 Triglycerides 212 mg/dL (<150) H 11/02/17 14:30 Cholesterol 278 mg/dL (<200) H 11/02/17 14:30 LDL Cholesterol Direct 207 mg/dL (75-193) H 11/02/17 14:30 HDL Cholesterol 22 mg/dL (23-92) L 11/02/17 14:30 Amylase 28 U/L (29-103) L 11/02/17 14:30 Lipase 5 U/L (11-82) L 11/02/17 14:30 Serum , Qual NEGATIVE (NEGATIVE) 11/02/17 14:30 Urine Source CLEAN C 11/02/17 16:53 Urine Color YELLOW 11/02/17 16:53 Urine Clarity CLEAR (CLEAR) 11/02/17 16:53 Urine pH 6.0 (4.6 - 8.0) 11/02/17 16:53 Ur Specific [place] <= 1.005 (1.005-1.030) 11/02/17 16:53 Urine Protein NEGATIVE mg/dL (NEGATIVE) 11/02/17 16:53 Urine Glucose (UA) NEGATIVE mg/dL (NEGATIVE) 11/02/17 16:53 Urine Ketones NEGATIVE mg/dL (NEGATIVE) 11/02/17 16:53 Urine Blood NEGATIVE (NEGATIVE) 11/02/17 16:53 Urine Nitrate NEGATIVE (NEGATIVE) 11/02/17 16:53 Urine Bilirubin NEGATIVE (NEGATIVE) 11/02/17 16:53 Urine Urobilinogen 0.2 E.U./dL (0.2 - 1.0) 11/02/17 16:53 Ur Leukocyte Esterase MODERATE (NEGATIVE) H 11/02/17 16:53 Urine RBC NONE SEEN /hpf (0-5) 11/02/17 16:53 Urine WBC 2-5 /hpf (0-5) 11/02/17 16:53 Ur Epithelial Cells FEW /lpf (FEW) 11/02/17 16:53 Urine Bacteria NONE SEEN /hpf (NONE SEEN) 11/02/17 16:53 Urine Mucus FEW /lpf (FEW) 11/02/17 16:53 Urine Test NEGATIVE 11/02/17 16:53 Urine Opiates Screen POSITIVE (NEGATIVE) H 11/02/17 16:53 Urine Methadone Screen NEGATIVE (NEGATIVE) 11/02/17 16:53 Ur Barbiturates Screen NEGATIVE (NEGATIVE) 11/02/17 16:53 Ur Tricyclics Screen NEGATIVE (NEGATIVE) 11/02/17 16:53 Ur Phencyclidine Scrn NEGATIVE (NEGATIVE) 11/02/17 16:53 Amphetamines Screen NEGATIVE (NEGATIVE) 11/02/17 16:53 U Methamphetamines Scrn NEGATIVE (NEGATIVE) 11/02/17 16:53 U Benzodiazepines Scrn POSITIVE (NEGATIVE) H 11/02/17 16:53 U Cocaine Metab Screen NEGATIVE (NEGATIVE) 11/02/17 16:53 U Cannabinoids Screen NEGATIVE (NEGATIVE) 11/02/17 16:53 Ethyl Alcohol 124 mg/dL (0-10) H 11/02/17 14:30 - Physical Exam Vitals and I&O: Vital Signs Temp 96.5 F 11/04/17 07:00 Pulse 72 11/04/17 07:00 Resp 17 11/04/17 08:13 BP 122/67 11/04/17 07:00 Pulse Ox 99 11/04/17 07:00 Intake & Output 11/03/17 11/04/17 11/04/17 18:59 06:59 18:59 Intake Total 1450 400 Balance 1450 400 Weight (lbs) 57.606 kg 62.596 kg Intake: Intake, IV Amount 1000 200 D5-0.45NS 1,000 ml @ 80 1000 mls/hr IV .[id number] [facility] Rx #:[id number] metroNIDAZOLE 500mg/NS 200 100mL 500 mg In 100 ml @ 100 mls/hr IV Q8HR [facility] Rx #:[id number] Oral 450 200 Other: # Voids 6 6 # Bowel Movements 6 0 Stool Characteristics Liquid Brown Weight Source Estimated Bedscale Active Medications: Current Medications Chlordiazepoxide (Librium) 50 mg PO Q6HR PRN; Protocol PRN Reason: Agitation Stop: 01/02/18 04:42 Last Admin: 11/03/17 21:38 Dose: 50 mg Dextrose/Sodium Chloride (D5-0.45ns) 1,000 mls @ 80 mls/hr IV .[id number] [facility] Stop: 01/01/18 22:59 Last Admin: 11/03/17 22:04 Dose: 80 mls/hr Ceftriaxone Sodium 1 gm/ (Dextrose) 50 mls @ 100 mls/hr IV Q24HR [facility] Stop: 01/02/18 04:42 Last Admin: 11/03/17 09:41 Dose: 100 mls/hr Metronidazole (Flagyl) 500 mg in 100 mls @ 100 mls/hr IV Q8HR [facility] Stop: 01/02/18 20:59 Last Infusion: 11/04/17 06:08 Dose: Infused Ketorolac Tromethamine (Toradol) 15 mg IVP Q6HR PRN PRN Reason: Pain (Mild) LEVEL 1-3 Stop: 01/02/18 04:42 Last Admin: 11/04/17 03:14 Dose: 15 mg Lactulose (Cephulac) 15 gm PO BID [facility] Stop: 01/03/18 08:59 Lorazepam (Ativan) 1 mg IVP Q4HR PRN; Protocol PRN Reason: Alcohol Withdrawal Stop: 01/01/18 20:24 Last Admin: 11/02/17 20:58 Dose: 1 mg Ondansetron HCl (Zofran) 4 mg IV Q6HR PRN PRN Reason: Nausea Stop: 01/02/18 04:42 Pantoprazole Sodium (Protonix) 40 mg IVP DAILY [facility] Stop: 01/02/18 08:59 Last Admin: 11/03/17 08:34 Dose: 40 mg Rifaximin (Xifaxan) 550 mg PO BID [facility] Stop: 01/03/18 08:59 Tramadol HCl (Ultram) 50 mg PO Q6HR PRN PRN Reason: Pain (Moderate) LEVEL 4-6 Stop: 01/02/18 17:00 Last Admin: 11/03/17 21:38 Dose: 50 mg General: Alert, Oriented x3 Cardiovascular: Regular rate Abdomen: Bowel sounds, Soft, Hepatomegaly, no Tender, no Rebound, no Guarding Extremities: no Clubbing Psych/Mental Status: Mental status NL Assessment/Plan - Problem List Patient Problems: All Active Problems ALCOHOL INGESTION, INABILITY TO AMBULATE (Acute) - Assessment Assessment: # Cirrhosis secondary to alcoholism. Decompensated by HE and HCC # Alcoholsim # Hepatocellular carcinoma Pt with HCC, followed by Dr López. She has had TACE previously, but this had been on hold as the pt has begun to drink again over the past 1-2 months. She was admitted ion 09/2017 for similar issues. She has alcoholic hepatitis, and is still drinking. She has had EGD within the last year. Plan: - needs to stop EtOH in order to have more treatments for HCC. 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 Will do soft today - no need to EGD now unless there is over bleeding - start lactulose and rifaximin, send ammonia level in AM
[2017-11-04] MEDS ORDERED: Lactulose 10 Gm/15 mL 30mL UDC PO SCH (09:00)
--- NOTE | 2017-11-04 09:53 | Diagnostic Imaging Report ---
Exam: Ultrasound examination abdomen HISTORY: Emesis. Findings: Real-time ultrasound examination of the abdomen was performed multiple planes The study demonstrates hepatomegaly with inhomogeneous liver parenchyma throughout. The liver spans 22 cm There is evidence for 3.7 x 3.1 cm left liver lobe mass There is evidence for 4.6 x 6.9 x 5.1 cm right lobe liver mass. Clinical correlation CT examination of the abdomen pelvis with contrast material is recommended The gallbladder contains a small calculi and the debris in the most dependent portion gallbladder. The common bile duct measures 6 mm There is no evidence of pericholecystic fluid collection. Gallbladder wall is thickened. There is no evidence of obstructive uropathy or nephrolithiasis. There is evidence of splenomegaly the spleen measures 20 cm in span. No free fluid is noted IMPRESSION 1. Hepatomegaly, liver masses most likely represent neoplastic component CT examination with contrast recommended. Gallbladder calculi and debris consistent with cholelithiasis, prominent common bile duct at 6 mm. Clinical correlation recommended. Splenomegaly
--- NOTE | 2017-11-04 10:23 | Consultation ---
DATE OF CONSULTATION: 11/04/2017 AGE: 52. SEX: Female. PHYSICIAN: Andres Churchill M.D. CYBER SECURITY SPECIALIST: Reed Pacheco M.D., M.P.H. CHIEF COMPLAINT: Heavy drinking. HISTORY OF PRESENT ILLNESS: The patient is a 52-year-old female who has been drinking "2-3 glasses every day." The patient has been falling at home and the patient said that she has unsteady gait. The patient has pancreatitis. She has been restless and has been agitated and unable to follow directions. The patient also is unmotivated to stop drinking. PAST PSYCHIATRIC HISTORY: The patient has history of alcoholism. PAST MEDICAL HISTORY: Liver cirrhosis and alcoholic hepatitis. SOCIAL HISTORY: The patient is and lives with her . She denies any other drug use except alcohol. MENTAL STATUS EXAM: The patient appears older than her stated age. Anxious. Sad affect. In a depressed mood. Thought process is goal directed. She denies hallucinations or delusions and she denied suicidal or homicidal ideations. The patient is alert and oriented to time, place, person, and situation. Intact immediate, recent, and remote memories. Fair insight. Judgment is poor. Seems to be of average intelligence based on her verbal ability. ASSESSMENT/PRIMARY DIAGNOSIS: Alcohol use disorder. TREATMENT PLAN: Continue detoxification using Librium and Ativan as already ordered by Dr. Churchill. Also, the patient will need rehabilitation if she will agree to do so. Thanks to Dr. Churchill. [facility]# [id number]
[2017-11-04] MEDS ORDERED: Potassium Chloride 20 mEq ER Tab PO ONE (13:19)
--- NOTE | 2017-11-04 15:54 | General Progress Note ---
Subjective - Review of Systems Service Date: 11/04/17 Subjective: Patient seen and examined seems more calm and cooperative tolerating soft diet well wants to go home Objective - Results Result Diagrams: 11/04/17 04:32 11/04/17 04:32 Recent Labs: Laboratory Last Values WBC 4.1 Th/cmm (4.8-10.8) L 11/04/17 04:32 RBC 2.54 Mil/cmm (3.80-5.10) L 11/04/17 04:32 Hgb 8.5 gm/dL (12-16) L 11/04/17 04:32 Hct 25.7 % (41.0-60) L 11/04/17 04:32 MCV 101.3 fl (81-100) H 11/04/17 04:32 MCH 33.4 pg (27.0-31.0) H 11/04/17 04:32 MCHC Differential 33.0 pg (28.0-36.0) 11/04/17 04:32 RDW 13.5 % (11.5-20.0) 11/04/17 04:32 Plt Count 102 Th/cmm (150-400) L 11/04/17 04:32 MPV 7.2 fl 11/04/17 04:32 Add Manual Diff YES 11/04/17 04:32 Band Neutrophils % 0 % (0-10) 11/04/17 04:32 Neutrophils (Manual) 74 % (40-80) 11/04/17 04:32 Lymphocytes 22 % (20-50) 11/04/17 04:32 Monocytes 4 % (2-10) 11/04/17 04:32 Eosinophils 0 % (0-5) 11/04/17 04:32 Basophils 0 % (0-3) 11/04/17 04:32 Platelet Estimate ADEQUATE (NORMAL) 11/04/17 04:32 Platelet Morphology NORMAL (NORMAL) 11/04/17 04:32 RBC Morph Micro Appear NORMAL (NORMAL) 11/04/17 04:32 PT 14.5 SECONDS (9.5-11.5) H 11/02/17 14:30 INR 1.37 (0.5-1.4) 11/02/17 14:30 Sodium 137 mEq/L (136-145) 11/04/17 04:32 Potassium 3.3 mEq/L (3.5-5.1) L 11/04/17 04:32 Chloride 102 mEq/L (98-107) 11/04/17 04:32 Carbon Dioxide 28.8 mEq/L (21.0-31.0) 11/04/17 04:32 Anion Gap 9.5 (7.0-16.0) 11/04/17 04:32 BUN 6 mg/dL (7-25) L 11/04/17 04:32 Creatinine 0.6 mg/dL (0.6-1.2) 11/04/17 04:32 Est GFR ( Amer) > 60.0 ml/min (>90) 11/04/17 04:32 Est GFR (Non-Af Amer) > 60.0 ml/min 11/04/17 04:32 BUN/Creatinine Ratio 10.0 11/04/17 04:32 Glucose 100 mg/dL (70-105) 11/04/17 04:32 Calcium 8.5 mg/dL (8.6-10.3) L 11/04/17 04:32 Total Bilirubin 2.8 mg/dL (0.3-1.0) H 11/04/17 04:32 AST 50 U/L (13-39) H 11/04/17 04:32 ALT 12 U/L (7-52) 11/04/17 04:32 Alkaline Phosphatase 123 U/L (34-104) H 11/04/17 04:32 Creatine Kinase 546 U/L (30-223) H 11/02/17 14:30 CK-MB (CK-2) 12.3 ng/mL (0.6-6.3) H 11/02/17 14:30 Troponin I 0.04 ng/mL (0.01-0.05) 11/02/17 14:30 B-Natriuretic Peptide 219.0 pg/mL (5.0-100.0) H 11/02/17 14:30 Total Protein 6.1 gm/dL (6.0-8.3) 11/04/17 04:32 Albumin 2.6 gm/dL (3.7-5.3) L 11/04/17 04:32 Globulin 3.5 gm/dL 11/04/17 04:32 Albumin/Globulin Ratio 0.7 (1.0-1.8) L 11/04/17 04:32 Triglycerides 212 mg/dL (<150) H 11/02/17 14:30 Cholesterol 278 mg/dL (<200) H 11/02/17 14:30 LDL Cholesterol Direct 207 mg/dL (75-193) H 11/02/17 14:30 HDL Cholesterol 22 mg/dL (23-92) L 11/02/17 14:30 Amylase 28 U/L (29-103) L 11/02/17 14:30 Lipase 5 U/L (11-82) L 11/02/17 14:30 Serum , Qual NEGATIVE (NEGATIVE) 11/02/17 14:30 Urine Source CLEAN C 11/02/17 16:53 Urine Color YELLOW 11/02/17 16:53 Urine Clarity CLEAR (CLEAR) 11/02/17 16:53 Urine pH 6.0 (4.6 - 8.0) 11/02/17 16:53 Ur Specific [place] <= 1.005 (1.005-1.030) 11/02/17 16:53 Urine Protein NEGATIVE mg/dL (NEGATIVE) 11/02/17 16:53 Urine Glucose (UA) NEGATIVE mg/dL (NEGATIVE) 11/02/17 16:53 Urine Ketones NEGATIVE mg/dL (NEGATIVE) 11/02/17 16:53 Urine Blood NEGATIVE (NEGATIVE) 11/02/17 16:53 Urine Nitrate NEGATIVE (NEGATIVE) 11/02/17 16:53 Urine Bilirubin NEGATIVE (NEGATIVE) 11/02/17 16:53 Urine Urobilinogen 0.2 E.U./dL (0.2 - 1.0) 11/02/17 16:53 Ur Leukocyte Esterase MODERATE (NEGATIVE) H 11/02/17 16:53 Urine RBC NONE SEEN /hpf (0-5) 11/02/17 16:53 Urine WBC 2-5 /hpf (0-5) 11/02/17 16:53 Ur Epithelial Cells FEW /lpf (FEW) 11/02/17 16:53 Urine Bacteria NONE SEEN /hpf (NONE SEEN) 11/02/17 16:53 Urine Mucus FEW /lpf (FEW) 11/02/17 16:53 Urine Test NEGATIVE 11/02/17 16:53 Urine Opiates Screen POSITIVE (NEGATIVE) H 11/02/17 16:53 Urine Methadone Screen NEGATIVE (NEGATIVE) 11/02/17 16:53 Ur Barbiturates Screen NEGATIVE (NEGATIVE) 11/02/17 16:53 Ur Tricyclics Screen NEGATIVE (NEGATIVE) 11/02/17 16:53 Ur Phencyclidine Scrn NEGATIVE (NEGATIVE) 11/02/17 16:53 Amphetamines Screen NEGATIVE (NEGATIVE) 11/02/17 16:53 U Methamphetamines Scrn NEGATIVE (NEGATIVE) 11/02/17 16:53 U Benzodiazepines Scrn POSITIVE (NEGATIVE) H 11/02/17 16:53 U Cocaine Metab Screen NEGATIVE (NEGATIVE) 11/02/17 16:53 U Cannabinoids Screen NEGATIVE (NEGATIVE) 11/02/17 16:53 Ethyl Alcohol 124 mg/dL (0-10) H 11/02/17 14:30 - Physical Exam Vitals and I&O: Vital Signs Temp 96.2 F 11/04/17 12:00 Pulse 72 11/04/17 12:00 Resp 18 11/04/17 12:00 BP 114/63 11/04/17 12:00 Pulse Ox 98 11/04/17 12:00 Intake & Output 11/03/17 11/04/17 11/04/17 18:59 06:59 18:59 Intake Total 1500 400 Balance 1500 400 Weight (lbs) 57.606 kg 62.596 kg Intake: Intake, IV Amount 1050 200 D5-0.45NS 1,000 ml @ 80 1000 mls/hr IV .[id number] [facility] Rx #:[id number] cefTRIAXone 1 gm In 50 Dextrose 5% 50 ml @ 100 mls/hr IV Q24HR [facility] Rx#: [id number] metroNIDAZOLE 500mg/NS 200 100mL 500 mg In 100 ml @ 100 mls/hr IV Q8HR [facility] Rx #:[id number] Oral 450 200 Other: # Voids 6 6 # Bowel Movements 6 0 Stool Characteristics Liquid Brown Weight Source Estimated Bedscale Active Medications: Current Medications Chlordiazepoxide (Librium) 50 mg PO Q6HR PRN; Protocol PRN Reason: Agitation Stop: 01/02/18 04:42 Last Admin: 11/03/17 21:38 Dose: 50 mg Ceftriaxone Sodium 1 gm/ (Dextrose) 50 mls @ 100 mls/hr IV Q24HR [facility] Stop: 01/02/18 04:42 Last Admin: 07/22/18 09:44 Dose: 100 mls/hr Ketorolac Tromethamine (Toradol) 15 mg IVP Q6HR PRN PRN Reason: Pain (Mild) LEVEL 1-3 Stop: 01/02/18 04:42 Last Admin: 11/04/17 03:14 Dose: 15 mg Lactulose (Cephulac) 15 gm PO BID [facility] Stop: 01/03/18 08:59 Last Admin: 11/04/17 09:44 Dose: 15 gm Lorazepam (Ativan) 1 mg IVP Q4HR PRN; Protocol PRN Reason: Alcohol Withdrawal Stop: 01/01/18 20:24 Last Admin: 11/02/17 20:58 Dose: 1 mg Ondansetron HCl (Zofran) 4 mg IV Q6HR PRN PRN Reason: Nausea Stop: 01/02/18 04:42 Pantoprazole Sodium (Protonix) 40 mg IVP DAILY [facility] Stop: 01/02/18 08:59 Last Admin: 11/04/17 09:45 Dose: 40 mg Rifaximin (Xifaxan) 550 mg PO BID [facility] Stop: 01/03/18 08:59 Last Admin: 11/04/17 09:45 Dose: 550 mg Tramadol HCl (Ultram) 50 mg PO Q6HR PRN PRN Reason: Pain (Moderate) LEVEL 4-6 Stop: 01/02/18 17:00 Last Admin: 11/03/17 21:38 Dose: 50 mg General: Alert Cardiovascular: Regular rate Lungs: Clear to auscultation Abdomen: Soft, Guarding, no Tender, no Rebound Extremities: Clubbing Assessment/Plan - Problem List Patient Problems: All Active Problems ALCOHOL INGESTION, INABILITY TO AMBULATE (Acute) - Assessment Assessment: Alcohol intoxication Hepatocellular carcinoma Alcoholic liver cirrhosis UTI - Plan Plan: Patient doing better DC home with scripts Highly advised for alcohol avoidance Highly advised to follow up with her Liver specialist upon discharge DC plan discussed with nursing staff
== END 2017-11-04 16:09 | disposition home or self-care (01) | DRG 279 ==
LOC: ER 13:52 → TELE 21:23 → EDBD 21:23
PROVIDERS: ADMIT Family Medicine; ATTEND Family Medicine
DX: K72.90 Hepatic failure, unspecified without coma (principal); K85.90 Acute pancreatitis without necrosis or infection, unspecified; C22.0 Liver cell carcinoma; R56.9 Unspecified convulsions; D63.8 Anemia in other chronic diseases classified elsewhere; E78.5 Hyperlipidemia, unspecified; K70.10 Alcoholic hepatitis without ascites; E87.6 Hypokalemia; N39.0 Urinary tract infection, site not specified; K70.30 Alcoholic cirrhosis of liver without ascites; I10 Essential (primary) hypertension; F17.210 Nicotine dependence, cigarettes, uncomplicated; F10.239 Alcohol dependence with withdrawal, unspecified; F10.229 Alcohol dependence with intoxication, unspecified; R19.7 Diarrhea, unspecified; Z82.49 Family history of ischemic heart disease and other diseases of the circulatory system
CPT/HCPCS: 36415-UA; 70450-TC; 72125-TC; 76700-TC; 80053-TC; 80061-TC; 80307; 80320-TC; 81001-TC; 81025-TC; 82150-TC; 82550-TC; 82553; 83690-TC; 83880-TC; 84484-TC; 84703-TC; 85007-TC; 85025-TC; 85610-TC; 87086-90; 87230-TC; 90799; 93005; C9113; J0696; J1885; J2060; J2405; J3411; J3475; J7030; X6598; Z7610